=== PATIENT | male | born 1995 | race Caucasian/White ===

== ENCOUNTER 2021-08-15 19:29 | Emergency (ER) | payer OTHER ==
[2021-08-15] MEDS ORDERED: NORCO 5-325 TA1 EACH PO (22:46)
== END 2021-08-15 23:03 | disposition home or self-care (01) ==
LOC: FER 19:29
DX: S52.252A Displaced comminuted fracture of shaft of ulna, left arm, initial encounter for closed fracture (principal); W01.0XXA Fall on same level from slipping, tripping and stumbling without subsequent striking against object, initial encounter; Y92.89 Other specified places as the place of occurrence of the external cause; Y99.0 Civilian activity done for income or pay
CPT/HCPCS: 73090

== ENCOUNTER → 2021-08-23 | Day surgery (SDC) | payer OTHER ==
[~2021-08-23] VITALS: Ht 182.9 cm; Wt 107.0 kg
[~2021-08-23] MED LIST: NORCO 5-325 TA1 EACH PO; NORCO 5/3251 EACH PO
[2021-08-23 08:34] LABS: HCT 43.8 % (42.0-52.0); HGB 14.6 g/dl (13.2-18.0); MCH 30.4 pg (25.0-31.0); MCHC 33.3 g/dL (32.0-36.0); MCV 91.3 fL (78.0-100.0); MPV 10.2 fL (6.0-9.5); RBC 4.8 M/uL (4.70-6.00); RDW 12.6 % (11.5-14.0); WBC 7.1 K/uL (4.0-10.5)
[2021-08-23 10:07] LABS: BUN/CREAT RATIO (CALC) 19.7 RATIO; CREATININE 0.76 mg/dL (0.67-1.17)
[2021-08-23 10:08] LABS: ALBUMIN 3.5 g/dL (3.4-5.0); BILIRUBIN - TOTAL 0.7 mg/dL (0.2-1.0); GLOBULIN (CALCULATION) 3.6 g/dL; TOTAL PROTEIN 7.1 g/dL (6.4-8.2)
== END | disposition home or self-care (01) ==
LOC: FAS 08:00
PROVIDERS: Orthopaedic Surgery
DX: S52.692A Other fracture of lower end of left ulna, initial encounter for closed fracture (principal); W19.XXXA Unspecified fall, initial encounter; Y99.0 Civilian activity done for income or pay
CPT/HCPCS: 36415; 73090; 76000; 80053; C1713; J0690; J1100; J1885; J2250; J2405; J2704; J2795; J3010; J7120